=== PATIENT | male | born 1995 | race African-American/Black ===

== ENCOUNTER 2019-11-28 10:50 | Emergency (ER) | payer SELFPAY ==
[~2019-11-28] VITALS: Ht 185.4 cm; Wt 104.5 kg
[~2019-11-28 10:50] MED LIST: NO; ULTRAM50 M1 PO
[2019-11-28 12:55] VITALS: BP 147/73
== END 2019-11-28 12:58 | disposition home or self-care (01) | DRG 866 ==
LOC: ED 10:50
DX: B34.9 Viral infection, unspecified (principal); F17.210 Nicotine dependence, cigarettes, uncomplicated; Z20.828 Contact with and (suspected) exposure to other viral communicable diseases